=== PATIENT | male | born 1950 | race Caucasian/White ===

== ENCOUNTER 2016-10-19 17:59 | Emergency (ER) | payer OTHER ==
[2016-10-19 18:06] VITALS: TEMP 97.5
[2016-10-19 18:34] LABS: COLOR PALE YELLOW; LEUKOCYTE ESTERASE,URINE NEGATIVE (NEGATIVE); NITRITE,URINE NEGATIVE (NEGATIVE)
[2016-10-19 18:47] LABS: % IMMATURE GRANULYOCYTES 0.6 % (0.0-1.1); ABSOLUTE IMMATURE GRANULOCYTES 0.03 10^3/uL (0.00-0.10); ADD DIFF? NO; ADD MORPH? NO; ADD SCAN? NO; ATYPICAL LYMPHOCYTE FLAG 20 (0-99); FRAGMENT RBC FLAG 0 (0-99); HEMATOCRIT 41.8 % (40.0-51.0); HEMOGLOBIN 14.8 g/dL (13.7-17.5); LEFT SHIFT FLG 0 (0-99); LIPEMIA HEMOLYSIS FLAG 90 (0-99); MEAN CELL HEMOGLOBIN 33.2 pg (27.9-34.1); MEAN CELL HEMOGLOBIN CONCENTR. 35.4 g/dL (32.4-36.7); MEAN CELL VOLUME 93.7 fL (81.5-99.8); MEAN PLATELET VOLUME 9.2 fL (8.7-11.7); PLATELET CLUMPS FLAG 10 (0-99); PLATELET COUNT 308 10^3/uL (150-400); RED BLOOD CELL COUNT 4.46 10^6/uL (4.40-6.38); RED CELL DISTRIBUTION WIDTH 12.6 % (11.5-15.2)
--- NOTE | 2016-10-19 18:50 | EDPHY ---
H & P Smoking Status: Never smoked Time Seen by Provider: 10/19/16 18:48 HPI/ROS: Chief complaint. Back pain HPI. 65-year-old male presents emergency department with back pain for 1 month. Is gradually worsening. He saw his PCP today who recommended multiple CT scans. The patient came to the hospital to have the CT scans performed. Apparently there was some problem getting authorization with the patient's insurance. He then decided to check into the emergency department and have his imaging studies performed through the emergency department. He has had no vomiting or fever. No shortness of breath or chest discomfort. No urinary symptoms. He has had some stable loose stools over the past month which is normal for him. He was on antibiotics 1 week ago for dental extraction. The pain is described as right mid back between the right scapula and the spine. It is constant. No change with movement, position, or exertion, breathing. No similar symptoms previously. ROS Constitutional. no fever/chills, no weakness Eyes. no problems with vision ENT. no sore throat, no nasal drainage Cardiovascular. no chest pain Respiratory. no shortness of breath, no cough Abdominal. no abdominal pain, no nausea/vomiting, no diarrhea . no problems urinating MS. Right back pain Skin. no rash Lymph. no swollen glands Neuro. 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 Vital signs are stable Eyes: Pupils equal and round no pallor or injection. ENT, Mouth: Mucous membranes are moist. Respiratory: There are no retractions, lungs are clear to auscultation. Cardiovascular: Regular rate and rhythm. Gastrointestinal: Abdomen is soft and nontender, no masses, bowel sounds normal. Neurological: Awake and alert, sensory and motor exams grossly normal. Skin: Warm and dry, no rashes. Musculoskeletal: Neck is supple nontender. Mild tenderness without surface trauma at the level of the lower right scapula and between the right scapular tip and the thoracic spine. No spine tenderness. No tenderness over the scapula. Extremities symmetrical, full range of motion. Psychiatric: Patient is oriented X 3, there is no agitation. (Michi Hassan) Constitutional: Initial Vital Signs Temperature (C) 36.4 C 10/19/16 18:02 Heart Rate 55 L 10/19/16 18:02 Respiratory Rate 18 10/19/16 18:02 Blood Pressure 130/74 H 10/19/16 18:02 O2 Sat (%) 96 10/19/16 18:02 O2 Delivery Mode Room Air Allergies/Adverse Reactions: No Known Allergies Allergy (Unverified 10/19/16 18:06) Home Medications: Medication Instructions Recorded Cyclobenzaprine [Flexeril 10 MG 10 mg PO TID PRN #20 tab 10/19/16 (RX)] PRILOSEC 10/19/16 Medical Decision Making - Diagnostics Imaging Results: CT chest with IV contrast shows no evidence of pulmonary embolus or pneumonia. This is reviewed by me and discussed with Dr. Wyatt CT thoracic spine with IV contrast shows DJD only CT abdomen and pelvis with IV contrast shows a dilated right ureter though no stone is seen. (Michi Hassan) Procedures: IV normal saline (Michi Hassan) ED Course/Re-evaluation: Re-evaluation 830 patient is stable. The radiologist would like to re-scanned an into a delayed abdomen pelvis CT to further evaluate the dilated right ureter. Patient otherwise remains stable. Patient and I discussed imaging and lab results. We discussed treatment plan including criteria for return importance of follow-up and further evaluation. He expresses understanding and agreement ( Michi Hassan) Differential Diagnosis: I have considered pulmonary embolus, pneumonia pneumothorax. I considered metastatic lesions to the thoracic spine or ribs. I have considered urinary tract infection as well as kidney stone. Finding is of dilated right ureter. ( Michi Hassan) Other Provider: I assumed care of this patient at 9:[address] Michi Hassan. CT scan with delayed images was called to me by Dr. Wyatt as revealing no obstruction. Patient does have several pulmonary nodules which will require follow-up and the patient may be slightly constipated. No stone was noted. I reexamined the patient. He is complaining of significant discomfort just lateral to his thoracic spine approximately T8-T9 area. Reviewing the patient' s CT thoracic spine results: No lytic lesions, no destructive lesions, but significant degenerative joint disease at that level. Patient was medicated with Toradol as well as Flexeril. He was advised follow- up with his primary care physician. He understands that MRI may be required if he continues to have significant pain. He is comfortable with the plan of discharge. (Janneth Enriquez) Care Turn Over: Care to Dr. Enriquez at 8:55 p.m. (Michi Hassan) - Data Points Laboratory Results: Laboratory Results 10/19/16 18:30 10/19/16 18:30 Medications Given: Discontinued Medications Cyclobenzaprine HCl (Flexeril) 10 mg PO EDNOW ONE Stop: 10/19/16 21:56 Last Admin: 10/19/16 22:08 Dose: 10 mg Sodium Chloride (Ns) 1,000 mls @ 0 mls/hr IV ONCE ONE; Wide Open PRN Reason: Protocol Stop: 10/19/16 19:30 Last Admin: 10/19/16 19:37 Dose: 1,000 mls Ketorolac Tromethamine (Toradol) 30 mg IVP EDNOW ONE Stop: 10/19/16 21:56 Last Admin: 10/19/16 22:07 Dose: 30 mg Departure - Departure Disposition: Home, Routine, Self-Care Clinical Impression: Back pain Qualifiers: Back pain location: thoracic back pain Chronicity: unspecified Back pain laterality: right Qualified Code(s): M54.6 - Pain in thoracic spine Condition: Good Instructions: Back Pain (ED) Additional Instructions: Ibuprofen 600 mg every 6-8 hours for discomfort. Return for worsening pain, fever, breathing. You have a dilated right ureter on CT scan today without evidence of kidney stone. The etiology of this is not clear and will need further workup by Urology. You have several small pulmonary nodules that also will require follow-up with Dr. Santana. Please follow-up with Dr. Santana on Saturday or Saturday for further evaluation. You have also been given a prescription of Flexeril. You may use this as needed for muscle spasm. Referrals: Glenroy Santana MD [Primary Care Provider] - 2-3 days without fail Prescriptions: Cyclobenzaprine [Flexeril 10 MG (RX)] 10 mg PO TID PRN #20 tab PRN Reason: Muscle Spasms
[2016-10-19 19:05] LABS: ALANINE AMINOTRANSFERASE 43 IU/L (21-72); ALBUMIN 4.2 g/dL (3.5-5.0); ALKALINE PHOSPHATASE 52 IU/L (38-126); ANION GAP 10 mEq/L (8-16); ASPARTATE AMINOTRANSFERASE 32 IU/L (17-59); BILIRUBIN,TOTAL 1.9 mg/dL (0.1-1.4); BILIRUBIN-CONJUGATED 0.3 mg/dL (0.0-0.5); BILIRUBIN-UNCONJUGATED 1.6 mg/dL (0.0-1.1); CALCIUM 9.7 mg/dL (8.5-10.4); CARBON DIOXIDE 24 mEq/l (22-31); CHLORIDE 102 mEq/L (97-110); CREATININE 1.1 mg/dL (0.7-1.3); GLOMERULAR FILTRATION RATE > 60; GLUCOSE 97 mg/dL (70-100); POTASSIUM 3.9 mEq/L (3.5-5.2); SODIUM 136 mEq/L (134-144); TOTAL PROTEIN 7.4 g/dL (6.3-8.2)
[2016-10-19] MEDS ORDERED: NS 1,000 ML IV ONE (19:29)
[2016-10-19] MEDS ORDERED: IOPAMIDOL (ISOVUE 370) 100 ML BTL IV ONE (19:33)
[2016-10-19] MEDS ORDERED: CYCLOBENZAPRINE 10 MG TAB PO ONE (21:55)
[2016-10-19] MEDS ORDERED: KETOROLAC 30 MG/1 ML SDV IVP ONE (21:55)
[2016-10-19 22:10] VITALS: RESP 16
[2016-10-19 22:18] VITALS: BP 122/68; PULSE 60; O2SAT 96
== END 2016-10-19 22:18 | disposition home or self-care (01) ==
DX: M54.6 Pain in thoracic spine (principal)
CPT/HCPCS: 96374; J1885; Q9967

== ENCOUNTER 2016-11-08 13:40 | Emergency (ER) | payer OTHER ==
[2016-11-08 14:12] VITALS: RESP 16
[2016-11-08 15:12] LABS: % IMMATURE GRANULYOCYTES 0.7 % (0.0-1.1); ABSOLUTE IMMATURE GRANULOCYTES 0.03 10^3/uL (0.00-0.10); ADD DIFF? NO; ADD MORPH? NO; ADD SCAN? NO; ATYPICAL LYMPHOCYTE FLAG 0 (0-99); FRAGMENT RBC FLAG 0 (0-99); HEMATOCRIT 42.6 % (40.0-51.0); HEMOGLOBIN 15.1 g/dL (13.7-17.5); LEFT SHIFT FLG 10 (0-99); LIPEMIA HEMOLYSIS FLAG 90 (0-99); MEAN CELL HEMOGLOBIN 32.8 pg (27.9-34.1); MEAN CELL HEMOGLOBIN CONCENTR. 35.4 g/dL (32.4-36.7); MEAN CELL VOLUME 92.6 fL (81.5-99.8); MEAN PLATELET VOLUME 9.6 fL (8.7-11.7); PLATELET CLUMPS FLAG 0 (0-99); PLATELET COUNT 266 10^3/uL (150-400); RED CELL DISTRIBUTION WIDTH 12.7 % (11.5-15.2)
[2016-11-08 15:19] LABS: COLOR YELLOW; LEUKOCYTE ESTERASE,URINE NEGATIVE (NEGATIVE); NITRITE,URINE NEGATIVE (NEGATIVE)
--- NOTE | 2016-11-08 15:21 | EDPHY ---
H & P Stated Complaint: R abd pain x 10 days;has appt w/PCP today;sent for eval;pt want OP MRI too Time Seen by Provider: 11/08/16 15:21 HPI/ROS: CHIEF COMPLAINT: RUQ pain, thoracic back pain. HISTORY OF PRESENT ILLNESS: The patient is a 65-year-old male who presents with right thoracic spine pain and RUQ pain. He was seen in the ER 10/19 for the same back pain and was discharged with Flexeril after an abdominal CT. The Flexeril gave him some relief. His pain returned 10/26 and was severe in nature. A few days after this he developed severe RUQ pain that has been persistent since. He denies vomiting, urinary symptoms, fever, diarrhea, chills, or other complaints. The pain is worsened with deep breathing. It does not radiate. He denies alleviating factors. No chest pain, shortness of breath, palpitations, headache, lightheadedness. He denies numbness or weakness in his legs or arms. REVIEW OF SYSTEMS: Aside from elements discussed in the HPI, a comprehensive 10-point review of systems was reviewed and is negative. 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 SOCIAL HISTORY: . VITAL SIGNS: Reviewed by me GENERAL: Well-developed, well-nourished, resting comfortably in no respiratory distress. HEENT: Atraumatic. Eyes: No icterus, no injection. Mouth: moist mucous membranes. No erythema or lesions. Neck: supple with no adenopathy. LUNGS: Clear to auscultation bilaterally, no wheezes, rhonchi or rales. CARDIAC: Regular rate and rhythm, no rubs, murmurs or gallops. ABDOMEN: Soft, bowel sounds normal. Mild RUQ tenderness. BACK: No CVA tenderness. EXTREMITIES: No trauma. No edema. Range of motion is normal throughout. NEURO: Alert and oriented, grossly nonfocal. SKIN: Warm and dry, no rash. PSYCHIATRIC: Normal mentation, no agitation. Portions of this note were transcribed by a medical surgical tech. I personally performed a history, physical exam, medical decision making, and confirmed accuracy of information the transcribed note. Source: Patient Exam Limitations: No limitations - Personal History Current Tetanus Diphtheria and Acellular Pertussis (TDAP): Unsure - Medical/Surgical History Hx Asthma: No Hx Chronic Respiratory Disease: No Hx Diabetes: No Hx Cardiac Disease: No Hx Renal Disease: No Hx Cirrhosis: No Hx Alcoholism: No Hx HIV/AIDS: No Hx Splenectomy or Spleen Trauma: No Other PMH: GERD. HIgh grade sarcoma - left forearm. Chronic back pain - Social History Smoking Status: Former smoker Constitutional: Initial Vital Signs Temperature (C) 36.9 C 11/08/16 14:07 Heart Rate 60 11/08/16 14:07 Respiratory Rate 16 11/08/16 14:07 Blood Pressure 119/68 11/08/16 14:07 O2 Sat (%) 98 11/08/16 14:07 O2 Delivery Mode Room Air Allergies/Adverse Reactions: No Known Allergies Allergy (Verified 11/08/16 14:12) Home Medications: Medication Instructions Recorded PRILOSEC 10/19/16 methylPREDNISolone [Medrol Dose 4 mg PO DAILY #1 ea 11/08/16 Servando] oxyCODONE/APAP 5/325 [Percocet 1 tab PO 11/08/16 5/325 (*)] oxyCODONE/APAP 5/325 [Percocet 1 tab PO QID PRN #20 tab 11/08/16 5/325 (*)] Medical Decision Making ED Course/Re-evaluation: 65-year-old male presents with ongoing thoracic back pain and RUQ pain for the past 8 days. I reviewed this patient's CT scan from his previous ER visit 10/19. On exam he has mild tenderness in his RUQ. An IV was established and labs ordered. He has an MRI scheduled for Saturday and we will take this today. I have also ordered a RUQ ultrasound. 1650: Ultrasound results conveyed to me negative by radiology. 183: MRI results conveyed to me by Dr. Wyatt, radiology as: no lytic lesions, disc bulge at T9/T10 with significant cord compression. Neurosurgery paged. 1834: Consulted with Dr. Lopez, neurosurgery. He will review the patient's images. I reevaluated the patient at this time and discussed the imaging results and plan with him. 0: Consulted with Dr. Lopez, neurosurgery. He recommends Medrol Dose servando and typical Ibuprofen/Acetaminophen dosing and will see the patient in his office. He is comfortable with this plan. - Data Points Laboratory Results: Laboratory Results 11/08/16 14:59 11/08/16 14:59 Medications Given: Discontinued Medications Sodium Chloride (Ns) 1,000 mls @ 0 mls/hr IV ONCE ONE; Wide Open PRN Reason: Protocol Stop: 11/08/16 18:41 Last Admin: 11/08/16 18:44 Dose: 1,000 mls Departure - Departure Disposition: Home, Routine, Self-Care Clinical Impression: Thoracic disc herniation, RUQ pain Condition: Good Instructions: Thoracic Disc Herniation (ED) Additional Instructions: Take the steroid as prescribed. I recommend Ibuprofen (Motrin,Advil) or Naproxen Sodium (Aleve) for pain and anti-inflammatory effects. You may take either one, but do not take both. Your dose is: Ibuprofen 600mg every 6-8 hours with food. OR Naproxen Sodium (Aleve) 220mg every 12 hours. Take 1000mg Tylenol every 6 hours for pain. Do not take Tylenol while you are taking Percocet. Call Dr. Lopez, neurosurgery, tomorrow to set up a follow up appointment. Return for any serious worsening of condition. Referrals: Lizandro Lopez MD [Medical Doctor] - As per Instructions Glenroy Santana MD [Primary Care Provider] - As per Instructions Prescriptions: methylPREDNISolone [Medrol Dose Servando] 4 mg PO DAILY #1 ea oxyCODONE/APAP 5/325 [Percocet 5/325 (*)] 1 tab PO QID PRN #20 tab PRN Reason: Pain Report Scribed for: Janneth Enriquez Report Scribed by: Guero Bryant Date of Report: 11/08/16 Time of Report: 15:58
[2016-11-08 15:22] LABS: ALANINE AMINOTRANSFERASE 35 IU/L (21-72); ALBUMIN 4.3 g/dL (3.5-5.0); ALKALINE PHOSPHATASE 39 IU/L (38-126); ANION GAP 12 mEq/L (8-16); ASPARTATE AMINOTRANSFERASE 29 IU/L (17-59); BILIRUBIN,TOTAL 2.3 mg/dL (0.1-1.4); BILIRUBIN-CONJUGATED 0.4 mg/dL (0.0-0.5); BILIRUBIN-UNCONJUGATED 1.9 mg/dL (0.0-1.1); CALCIUM 9.7 mg/dL (8.5-10.4); CARBON DIOXIDE 20 mEq/l (22-31); CHLORIDE 108 mEq/L (97-110); CREATININE 1.4 mg/dL (0.7-1.3); GLOMERULAR FILTRATION RATE 51; GLUCOSE 92 mg/dL (70-100); POTASSIUM 4.7 mEq/L (3.5-5.2); SODIUM 140 mEq/L (134-144); TOTAL PROTEIN 7.4 g/dL (6.3-8.2)
[2016-11-08] MEDS ORDERED: GADOBUTROL 10 ML VIAL IVP ONE (17:25)
[2016-11-08 18:27] VITALS: TEMP 97.9
[2016-11-08] MEDS ORDERED: NS 1,000 ML IV ONE (18:40)
[2016-11-08 19:24] VITALS: BP 120/72; PULSE 69; O2SAT 95
== END 2016-11-08 19:24 | disposition home or self-care (01) ==
DX: R10.11 Right upper quadrant pain (principal); M51.24 Other intervertebral disc displacement, thoracic region; Z87.891 Personal history of nicotine dependence
CPT/HCPCS: A9585

== ENCOUNTER → 2016-12-13 | Outpatient (CLI) | payer OTHER | LOC: FIMAGING 15:15 | PROVIDERS: ATTEND Neurological Surgery | DX: M50.30 Other cervical disc degeneration, unspecified cervical region (principal); M48.02 Spinal stenosis, cervical region; M99.71 Connective tissue and disc stenosis of intervertebral foramina of cervical region; R60.0 Localized edema ==

== ENCOUNTER → 2018-02-28 | Outpatient (CLI) | payer OTHER, MEDICARE ==
[~2018-02-28] MED LIST: GADOBUTROL 10 ML VIAL IVP ONE
== END ==
LOC: FIMAGING 13:55
PROVIDERS: ATTEND Internal Medicine Hematology & Oncology
DX: M23.92 Unspecified internal derangement of left knee (principal); Z85.831 Personal history of malignant neoplasm of soft tissue; M75.22 Bicipital tendinitis, left shoulder; M24.822 Other specific joint derangements of left elbow, not elsewhere classified
CPT/HCPCS: 73220; 73720; A9585; 82565-PO